=== PATIENT | male | born 1945 | race Hispanic/Latino ===

== ENCOUNTER → 2019-10-31 | Outpatient (CLI) | payer MEDICARE ==
[~2019-10-31] MED LIST: ALBUMIN (HUMAN) 25% 200 ML IV ONE
[2019-10-31 08:57] LABS: BASOPHILS % (AUTO) 0.6 % (0.0-5.0); EOSINOPHILS % (AUTO) 2.2 % (0.0-8.0); HEMATOCRIT 27.5 % (42-54); LYMPHOCYTES % (AUTO) 16.9 % (21.0-51.0); MEAN CORPUSCULAR HEMOGLOBIN 29.9 pg (27.0-33.0); MEAN CORPUSCULAR HGB CONC 31.3 g/dL (32.0-36.0); MEAN CORPUSCULAR VOLUME 95.5 fL (79-99); MONOCYTES % (AUTO) 5.6 % (3.0-13.0); NEUTROPHILS % (AUTO) 74.4 % (40.0-77.0); PLATELET COUNT (AUTO) 196 K/uL (130-400); RED BLOOD CELL COUNT(AUTO) 2.88 MIL/uL (4.50-6.20); RED CELL DISTRIBUTION WIDTH 19.8 % (11.0-15.5)
[2019-10-31 09:31] LABS: INR 1.18 (0.85-1.15); PROTHROMBIN TIME 12.3 SEC (9.6-11.6)
--- NOTE | 2019-10-31 10:45 | NUR ---
U/S GD PARACENTESIS PROCEDURE PERFORMED BY DR Garo CLARK. PUNCTURE SITE RLQ AND PATIENT TOLERATED PROCEDURE WELL. TOTAL REMOVED 5.5 LITERS OF CLOUDY YELLOW FLUID. ALBUMIN 25% 50 GRAMS IV GIVEN DURING PROCEDURE. SPECIMEN SENT TO LAB. END OF PROCEDURE AT 1015. CATHETER REMOVED AND DRESSING APPLIED. NO BLEEDING NOTED. DISCHARGE INSTRUCTIONS GIVEN TO PATIENT AND VERBALIZED UNDERSTANDING. DISCHARG[facility]. AAO X3 WITH NO C/O PAIN.
[2019-10-31 11:17] LABS: ALBUMIN 1.8 g/dL (3.5-5.0); BILIRUBIN,TOTAL 0.5 mg/dL (0.2-1.0); CREATININE 1.7 mg/dL (0.5-1.5); TOTAL PROTEIN, SERUM 6.7 g/dL (6.0-8.3)
[2019-10-31 16:38] LABS: APPEARANCE BODY FLUID SLIGHTLY CLOUDY (CLEAR); COLOR,BODY FLUID YELLOW (LT YELLOW); SPECIMENTYPE,BODY FLUID ASCITES
[2019-10-31 16:39] LABS: BODY FLUID WBC 206 /cu. mm.; TOTAL VOLUME,BODY FLUID 5500 mL
[2019-10-31 16:40] LABS: BODY FLUID RBC 130 /cu. mm.
[2019-10-31 16:42] LABS: BF LYMPHOCYTE 39 %; BF MESOTHELIAL 2 %; BF MONOCYTE 1 %; BF OTHER CELLS 3
== END ==
LOC: RAH 08:10
PROVIDERS: ATTEND Internal Medicine Gastroenterology
DX: R18.8 Other ascites (principal); Z79.899 Other long term (current) drug therapy
CPT/HCPCS: 36415; 49083; 80053; 82042; 84157; 85025; 85610; 87071; 87205; 88108; 89051; A4215; P9046

== ENCOUNTER → 2019-11-08 | Outpatient (CLI) | payer MEDICARE ==
[~2019-11-08] MED LIST changes: -ALBUMIN (HUMAN) 25% 200 ML IV ONE; +ALBUMIN (HUMAN) 25% 200 ML IV PRN
--- NOTE | 2019-11-08 09:45 | NUR ---
U/S GD PARACENTESIS PROCEDURE PERFORMED BY DR BRADLEY. PUNCTURE SITE RLQ AND PATIENT TOLERATED PROCEDURE WELL. TOTAL REMOVED 6.2 LITERS OF CLOUDY YELLOW FLUID. ALBUMIN 25% 50 GRAMS IV GIVEN DURING PROCEDURE. SPECIMEN SENT TO LAB. END OF PROCEDURE AT 0915. CATHETER REMOVED AND DRESSING APPLIED. NO BLEEDING NOTED. DISCHARGE INSTRUCTIONS GIVEN TO PATIENT AND VERBALIZED UNDERSTANDING. DISCHARGED VIA VAN TRANSPORTATION TO [facility]. AAO X3 WITH NO C/O PAIN.
[2019-11-08 12:40] LABS: APPEARANCE BODY FLUID CLEAR (CLEAR); BODY FLUID WBC 239 /cu. mm.; COLOR,BODY FLUID YELLOW (LT YELLOW); SPECIMENTYPE,BODY FLUID ASCITES; TOTAL VOLUME,BODY FLUID 6200 mL
[2019-11-08 12:41] LABS: BODY FLUID RBC 70 /cu. mm.
[2019-11-08 12:51] LABS: BF LYMPHOCYTE 39 %; BF MESOTHELIAL 14 %; BF MONOCYTE 12 %
== END ==
LOC: RAH 08:22
PROVIDERS: ATTEND Internal Medicine
DX: R18.8 Other ascites (principal); Z79.899 Other long term (current) drug therapy
CPT/HCPCS: 49083; 87071; 87205; 89051; 96365; A4215

== ENCOUNTER → 2019-11-18 | Outpatient (CLI) | payer MEDICARE ==
[~2019-11-18] MED LIST changes: -ALBUMIN (HUMAN) 25% 200 ML IV PRN; +ALBUMIN (HUMAN) 25% 200 ML IV SCH
--- NOTE | 2019-11-18 09:30 | NUR ---
U/S GD PARACENTESIS PROCEDURE PERFORMED BY DR Jeramie SAHU. PUNCTURE SITE RLQ AND PATIENT TOLERATED PROCEDURE WELL. TOTAL REMOVED 6.7 LITERS OF CLOUDY YELLOW FLUID. ALBUMIN 25% 50 GRAMS IV GIVEN DURING PROCEDURE. SPECIMEN SENT TO LAB. END OF PROCEDURE AT 0900. CATHETER REMOVED AND DRESSING APPLIED. NO BLEEDING NOTED. DISCHARGE INSTRUCTIONS GIVEN TO PATIENT AND VERBALIZED UNDERSTANDING. DISCHARGED VIA W/C AT 0930. AAO X3 WITH NO C/O PAIN.
[2019-11-18 14:48] LABS: APPEARANCE BODY FLUID SLIGHTLY CLOUDY (CLEAR); SPECIMENTYPE,BODY FLUID ASCITES
[2019-11-18 14:49] LABS: COLOR,BODY FLUID YELLOW (LT YELLOW); TOTAL VOLUME,BODY FLUID 6700 mL
[2019-11-18 15:03] LABS: BODY FLUID WBC 260 /cu. mm.
[2019-11-18 15:04] LABS: BODY FLUID RBC 263 /cu. mm.
[2019-11-18 15:13] LABS: BF LYMPHOCYTE 51 %; BF MESOTHELIAL 5 %
== END ==
LOC: RAH 07:56
PROVIDERS: ATTEND Internal Medicine
DX: R18.8 Other ascites (principal); K74.60 Unspecified cirrhosis of liver; I13.0 Hypertensive heart and chronic kidney disease with heart failure and stage 1 through stage 4 chronic kidney disease, or unspecified chronic kidney disease; I50.42 Chronic combined systolic (congestive) and diastolic (congestive) heart failure; E11.22 Type 2 diabetes mellitus with diabetic chronic kidney disease; N18.3 Chronic kidney disease, stage 3 (moderate); E11.52 Type 2 diabetes mellitus with diabetic peripheral angiopathy with gangrene; E11.43 Type 2 diabetes mellitus with diabetic autonomic (poly)neuropathy; E11.621 Type 2 diabetes mellitus with foot ulcer; E78.2 Mixed hyperlipidemia; F17.200 Nicotine dependence, unspecified, uncomplicated; Z88.8 Allergy status to other drugs, medicaments and biological substances; Z79.4 Long term (current) use of insulin; Z79.899 Other long term (current) drug therapy; Z89.432 Acquired absence of left foot
CPT/HCPCS: 49083; 76700; 87071; 87205; 89051; 96365; A4215; P9046

== ENCOUNTER 2019-11-25 10:52 | Emergency (ER) | payer MEDICARE ==
--- NOTE | 2019-11-25 12:10 | NUR ---
U/S GD PARACENTESIS PROCEDURE PERFORMED BY DR. HELLER. PUNCTURE SITE RIGHT LOWER QUADRANT OF ABDOMEN AND PATIENT TOLERATED PROCEDURE WELL. TOTAL REMOVED 4.2 LITERS OF CLOUDY STRAW COLORED ASCITES FLUID. END OF PROCEDURE AT 1230. CATHETER REMOVED AND DRESSING APPLIED. NO BLEEDING NOTED. ALBUMIN 25% 25 GRAMS GIVEN DURING PROCEDURE PER [facility] [place] ALBUMIN PROTOCOL. REPORT CALLED TO [facility] N[facility]SE. PT TRANSPORTED TO THE ED VIA STRETCHER STABLE, AAO X3 WITH NO C/O PAIN. SPOUSE ESCORTING PATIENT WITH PATIENT'S W/C. SPECIMEN SENT TO LAB.
[2019-11-25 12:13] LABS: BASOPHILS % (AUTO) 0.4 % (0.0-5.0); EOSINOPHILS % (AUTO) 1.3 % (0.0-8.0); HEMATOCRIT 33.7 % (42-54); LYMPHOCYTES % (AUTO) 17.2 % (21.0-51.0); MEAN CORPUSCULAR HEMOGLOBIN 29.6 pg (27.0-33.0); MEAN CORPUSCULAR HGB CONC 31.8 g/dL (32.0-36.0); MEAN CORPUSCULAR VOLUME 93.1 fL (79-99); MONOCYTES % (AUTO) 5.2 % (3.0-13.0); NEUTROPHILS % (AUTO) 74.7 % (40.0-77.0); PLATELET COUNT (AUTO) 220 K/uL (130-400); RED BLOOD CELL COUNT(AUTO) 3.62 MIL/uL (4.50-6.20); RED CELL DISTRIBUTION WIDTH 16.9 % (11.0-15.5); WHITE BLOOD COUNT (AUTO) 9.4 K/uL (4.8-10.8)
[2019-11-25] MEDS ORDERED: ALBUMIN (HUMAN) 25% 200 ML IV SCH (12:15)
[2019-11-25 12:23] LABS: INR 1.17 (0.85-1.15); PARTIAL THROMBOPLASTIN TIME 34.6 SEC (26.3-35.5); PROTHROMBIN TIME 12.2 SEC (9.6-11.6)
[2019-11-25 12:25] LABS: CREATININE 2.7 mg/dL (0.5-1.5); POTASSIUM 5.4 mmol/L (3.5-5.1)
[2019-11-25 12:29] LABS: ALBUMIN 2.2 g/dL (3.5-5.0); BILIRUBIN,TOTAL 0.7 mg/dL (0.2-1.0); TOTAL PROTEIN, SERUM 7.3 g/dL (6.0-8.3)
[2019-11-25 15:50] LABS: APPEARANCE BODY FLUID SLIGHTLY CLOUDY (CLEAR); COLOR,BODY FLUID YELLOW (LT YELLOW); SPECIMENTYPE,BODY FLUID ASCITES; TOTAL VOLUME,BODY FLUID 4200 mL
[2019-11-25 15:51] LABS: BODY FLUID RBC 211 /cu. mm.; BODY FLUID WBC 347 /cu. mm.
[2019-11-25 15:55] LABS: BF LYMPHOCYTE 62 %; BF MESOTHELIAL 8 %; BF MONOCYTE 10 %
== END 2019-11-25 15:30 | disposition home or self-care (01) ==
LOC: EDH 10:52
DX: R18.8 Other ascites (principal); E11.9 Type 2 diabetes mellitus without complications; I10 Essential (primary) hypertension
CPT/HCPCS: 36415; 49083; 80053; 82948 ×2; 85025; 85610; 85730; 87071; 87205; 89051; 96365; 99285; A4215

== ENCOUNTER → 2019-12-02 | Outpatient (CLI) | payer MEDICARE ==
--- NOTE | 2019-12-02 08:35 | NUR ---
U/S GD PARACENTESIS PROCEDURE PERFORMED BY DR. HELLER. PUNCTURE SITE RIGHT LOWER QUADRANT OF ABDOMEN AND PATIENT TOLERATED PROCEDURE WELL. TOTAL REMOVED 3.8 LITERS OF CLOUDY YELLOW FLUID. END OF PROCEDURE AT 0900. CATHETER REMOVED AND DRESSING APPLIED. NO BLEEDING NOTED. ALBUMIN 25% 50 GRAMS GIVEN DURING PROCEDURE PER [facility] [place] ALBUMIN PROTOCOL. PIV DC'D, BANDAID APPLIED, DRESSING DRY AND INTACT. DISCHARGE INSTRUCTIONS GIVEN TO PATIENT. PATIENT VERBALIZED UNDERSTANDING. PT DISCHARGED VIA W/C, STABLE, AAO X3 WITH NO C/O PAIN. SPECIMEN SENT TO LAB.
[2019-12-02 15:28] LABS: APPEARANCE BODY FLUID SLIGHTLY CLOUDY (CLEAR); COLOR,BODY FLUID YELLOW (LT YELLOW); SPECIMENTYPE,BODY FLUID ASCITES; TOTAL VOLUME,BODY FLUID 3800 mL
[2019-12-02 15:29] LABS: BODY FLUID WBC 358 /cu. mm.
[2019-12-02 15:30] LABS: BODY FLUID RBC 175 /cu. mm.
[2019-12-02 16:31] LABS: BF LYMPHOCYTE 73 %; BF MESOTHELIAL 2 %; BF OTHER CELLS 1
== END | disposition home or self-care (01) ==
LOC: RAH 07:33
PROVIDERS: ATTEND Internal Medicine
DX: R18.8 Other ascites (principal); K74.60 Unspecified cirrhosis of liver; E11.22 Type 2 diabetes mellitus with diabetic chronic kidney disease; N18.3 Chronic kidney disease, stage 3 (moderate); E78.2 Mixed hyperlipidemia; I50.42 Chronic combined systolic (congestive) and diastolic (congestive) heart failure; I13.0 Hypertensive heart and chronic kidney disease with heart failure and stage 1 through stage 4 chronic kidney disease, or unspecified chronic kidney disease; J44.9 Chronic obstructive pulmonary disease, unspecified; F11.20 Opioid dependence, uncomplicated; E11.618 Type 2 diabetes mellitus with other diabetic arthropathy; E11.42 Type 2 diabetes mellitus with diabetic polyneuropathy; E11.51 Type 2 diabetes mellitus with diabetic peripheral angiopathy without gangrene; Z79.4 Long term (current) use of insulin; Z79.899 Other long term (current) drug therapy; Z88.8 Allergy status to other drugs, medicaments and biological substances
CPT/HCPCS: 49083; 87071; 87205; 89051; 96365; A4215; P9046

== ENCOUNTER → 2019-12-09 | Outpatient (CLI) | payer MEDICARE ==
[~2019-12-09] MED LIST changes: +ALBUMIN (HUMAN) 25% 100 ML IV SCH; -ALBUMIN (HUMAN) 25% 200 ML IV SCH
--- NOTE | 2019-12-09 09:55 | NUR ---
U/S GD PARACENTESIS PROCEDURE PERFORMED BY DR. HELLER. PUNCTURE SITE RIGHT LOWER QUADRANT OF ABDOMEN AND PATIENT TOLERATED PROCEDURE WELL. TOTAL REMOVED 4.7 LITERS OF CLOUDY YELLOW FLUID. END OF PROCEDURE AT 1035. CATHETER REMOVED AND DRESSING APPLIED. NO BLEEDING NOTED. ALBUMIN 25% 25 GRAMS GIVEN DURING PROCEDURE [place] [facility] [place]. PIV DC'D, BANDAID APPLIED, DRESSING DRY AND INTACT. DISCHARGE INSTRUCTIONS GIVEN TO PATIENT. PATIENT VERBALIZED UNDERSTANDING. PT DISCHARGED VIA W/C, STABLE, AAO X3 WITH NO C/O PAIN. SPECIMEN SENT TO LAB.
[2019-12-09 14:13] LABS: SPECIMENTYPE,BODY FLUID ASCITES
[2019-12-09 14:14] LABS: APPEARANCE BODY FLUID SLIGHTLY CLOUDY (CLEAR); BODY FLUID RBC 625 /cu. mm.; BODY FLUID WBC 605 /cu. mm.; COLOR,BODY FLUID LT YELLOW (LT YELLOW); TOTAL VOLUME,BODY FLUID 4700 mL
[2019-12-09 14:16] LABS: BF LYMPHOCYTE 25 %; BF MESOTHELIAL 1 %; BF MONOCYTE 7 %
== END ==
LOC: RAH 09:07
PROVIDERS: ATTEND Internal Medicine
DX: R18.8 Other ascites (principal); K74.60 Unspecified cirrhosis of liver; E78.2 Mixed hyperlipidemia; I13.0 Hypertensive heart and chronic kidney disease with heart failure and stage 1 through stage 4 chronic kidney disease, or unspecified chronic kidney disease; N18.3 Chronic kidney disease, stage 3 (moderate); E11.22 Type 2 diabetes mellitus with diabetic chronic kidney disease; I50.42 Chronic combined systolic (congestive) and diastolic (congestive) heart failure; J44.9 Chronic obstructive pulmonary disease, unspecified; E11.618 Type 2 diabetes mellitus with other diabetic arthropathy; E11.42 Type 2 diabetes mellitus with diabetic polyneuropathy; E11.51 Type 2 diabetes mellitus with diabetic peripheral angiopathy without gangrene; Z79.4 Long term (current) use of insulin; Z79.899 Other long term (current) drug therapy; Z88.8 Allergy status to other drugs, medicaments and biological substances
CPT/HCPCS: 49083; 87071; 87205; 89051; 96365; A4215; P9046

== ENCOUNTER → 2019-12-16 | Outpatient (CLI) | payer MEDICARE ==
[~2019-12-16] MED LIST changes: -ALBUMIN (HUMAN) 25% 100 ML IV SCH; +ALBUMIN (HUMAN) 25% 200 ML IV PRN
--- NOTE | 2019-12-16 11:00 | NUR ---
U/S GD PARACENTESIS PROCEDURE PERFORMED BY DR. whitman. PUNCTURE SITE RUQ. TOTAL REMOVED 3.5LITERS OF STAW COLOR FLUID. END OF PROCEDURE AT 1045. PATIENT TOLERATED PROCEDURE WELL. DISCHARGE INSTRUCTIONS GIVEN TO PATIENT AND VERBALIZED UNDERSTANDING. DISCHARGED AT 1100 VIA WHEELCHAIR. PUNCTURE SITE SHOWS NO BLEEDING.PT DENIES ANY PAIN OR DISCOMFORT.
== END ==
LOC: RAH 08:01
PROVIDERS: ATTEND Internal Medicine
DX: R18.8 Other ascites (principal); I13.0 Hypertensive heart and chronic kidney disease with heart failure and stage 1 through stage 4 chronic kidney disease, or unspecified chronic kidney disease; I50.42 Chronic combined systolic (congestive) and diastolic (congestive) heart failure; N18.3 Chronic kidney disease, stage 3 (moderate); D63.8 Anemia in other chronic diseases classified elsewhere; E11.22 Type 2 diabetes mellitus with diabetic chronic kidney disease; M86.672 Other chronic osteomyelitis, left ankle and foot; E78.2 Mixed hyperlipidemia; E11.42 Type 2 diabetes mellitus with diabetic polyneuropathy; E11.51 Type 2 diabetes mellitus with diabetic peripheral angiopathy without gangrene; Z88.6 Allergy status to analgesic agent; Z88.8 Allergy status to other drugs, medicaments and biological substances; Z79.4 Long term (current) use of insulin; Z79.899 Other long term (current) drug therapy; F11.20 Opioid dependence, uncomplicated; E11.618 Type 2 diabetes mellitus with other diabetic arthropathy
CPT/HCPCS: 49083; A4215

== ENCOUNTER → 2019-12-23 | Outpatient (CLI) | payer MEDICARE ==
[~2019-12-23] MED LIST changes: +ALBUMIN (HUMAN) 25% 100 ML IV PRN
--- NOTE | 2019-12-23 08:55 | NUR ---
U/S GD PARACENTESIS PROCEDURE PERFORMED BY DR. HELLER. PUNCTURE SITE RIGHT LOWER QUADRANT OF ABDOMEN AND PATIENT TOLERATED PROCEDURE WELL. TOTAL REMOVED 4.2 LITERS OF CLOUDY YELLOW FLUID. END OF PROCEDURE AT 0925. CATHETER REMOVED AND DRESSING APPLIED. NO BLEEDING NOTED. ALBUMIN 25% 25 GRAMS GIVEN DURING PROCEDURE PER [facility] [place] ALBUMIN PROTOCOL. PIV DC'D, BANDAID APPLIED, DRESSING DRY AND INTACT. DISCHARGE INSTRUCTIONS GIVEN TO PATIENT. PATIENT VERBALIZED UNDERSTANDING. PT DISCHARGED VIA W/C, STABLE, AAO X3 WITH NO C/O PAIN. SPECIMEN SENT TO LAB.
[2019-12-23 15:28] LABS: APPEARANCE BODY FLUID SLIGHTLY CLOUDY (CLEAR); COLOR,BODY FLUID YELLOW (LT YELLOW); SPECIMENTYPE,BODY FLUID ASCITES; TOTAL VOLUME,BODY FLUID 4200 mL
[2019-12-23 15:29] LABS: BODY FLUID RBC 700 /cu. mm.; BODY FLUID WBC 770 /cu. mm.
[2019-12-23 15:52] LABS: BF LYMPHOCYTE 20 %; BF MESOTHELIAL 6 %
== END ==
LOC: RAH 07:12
PROVIDERS: ATTEND Internal Medicine
DX: R18.8 Other ascites (principal); K74.60 Unspecified cirrhosis of liver; I13.0 Hypertensive heart and chronic kidney disease with heart failure and stage 1 through stage 4 chronic kidney disease, or unspecified chronic kidney disease; E11.22 Type 2 diabetes mellitus with diabetic chronic kidney disease; N18.3 Chronic kidney disease, stage 3 (moderate); E11.52 Type 2 diabetes mellitus with diabetic peripheral angiopathy with gangrene; E11.43 Type 2 diabetes mellitus with diabetic autonomic (poly)neuropathy; M86.672 Other chronic osteomyelitis, left ankle and foot; I50.42 Chronic combined systolic (congestive) and diastolic (congestive) heart failure; E11.59 Type 2 diabetes mellitus with other circulatory complications; F11.20 Opioid dependence, uncomplicated; E78.2 Mixed hyperlipidemia; E11.618 Type 2 diabetes mellitus with other diabetic arthropathy; E03.9 Hypothyroidism, unspecified; E11.42 Type 2 diabetes mellitus with diabetic polyneuropathy; E11.51 Type 2 diabetes mellitus with diabetic peripheral angiopathy without gangrene; Z79.4 Long term (current) use of insulin; Z79.899 Other long term (current) drug therapy; Z88.8 Allergy status to other drugs, medicaments and biological substances
CPT/HCPCS: 49083; 87071; 87205; 89051; 96365; A4215

== ENCOUNTER → 2019-12-30 | Outpatient (CLI) | payer MEDICARE ==
[~2019-12-30] MED LIST changes: +ALBUMIN (HUMAN) 25% 100 ML IV ONE; -ALBUMIN (HUMAN) 25% 100 ML IV PRN; -ALBUMIN (HUMAN) 25% 200 ML IV PRN
[2019-12-30 08:34] LABS: INR 1.11 (0.85-1.15); PARTIAL THROMBOPLASTIN TIME 36.1 SEC (26.3-35.5); PROTHROMBIN TIME 11.6 SEC (9.6-11.6)
--- NOTE | 2019-12-30 09:10 | NUR ---
U/S GD PARACENTESIS PROCEDURE PERFORMED BY DR. HELLER. PUNCTURE SITE LEFT LOWER QUADRANT OF ABDOMEN AND PATIENT TOLERATED PROCEDURE WELL. TOTAL REMOVED 4.6 LITERS [place] CLOUDY [place] [address]. CATHETER REMOVED AND DRESSING APPLIED. NO BLEEDING NOTED. ALBUMIN 25% 25 GRAMS GIVEN DURING PROCEDURE PER [facility] [place]. RIGHT FOREARM PIV DC'D, BANDAID APPLIED, DRESSING DRY AND INTACT. DISCHARGE INSTUCTIONS GIVEN TO PATIENT. PATIENT VERBALIZED UNDERSTANDING. PT DISCHARGED VIA W/C, STABLE, AAO X3 WITH NO C/O PAIN. SPECIMEN SENT TO LAB.
[2019-12-30 16:13] LABS: APPEARANCE BODY FLUID SLIGHTLY CLOUDY (CLEAR); BODY FLUID WBC 399 /cu. mm.; COLOR,BODY FLUID YELLOW (LT YELLOW); SPECIMENTYPE,BODY FLUID ASCITES; TOTAL VOLUME,BODY FLUID 1000 mL
[2019-12-30 16:14] LABS: BODY FLUID RBC 800 /cu. mm.
[2019-12-30 16:16] LABS: BF LYMPHOCYTE 29 %; BF MESOTHELIAL 2 %; BF MONOCYTE 7 %
== END ==
LOC: RAH 07:41
PROVIDERS: ATTEND Internal Medicine
DX: K74.60 Unspecified cirrhosis of liver (principal); E11.43 Type 2 diabetes mellitus with diabetic autonomic (poly)neuropathy; E11.22 Type 2 diabetes mellitus with diabetic chronic kidney disease; E78.2 Mixed hyperlipidemia; E11.618 Type 2 diabetes mellitus with other diabetic arthropathy; E03.9 Hypothyroidism, unspecified; E11.51 Type 2 diabetes mellitus with diabetic peripheral angiopathy without gangrene; N18.3 Chronic kidney disease, stage 3 (moderate); M86.172 Other acute osteomyelitis, left ankle and foot; Z88.6 Allergy status to analgesic agent; Z88.8 Allergy status to other drugs, medicaments and biological substances; Z79.899 Other long term (current) drug therapy
CPT/HCPCS: 36415; 49083; 85610; 85730; 87071; 87205; 89051; A4215; 96365; P9046

== ENCOUNTER → 2020-01-06 | Outpatient (CLI) | payer MEDICARE ==
[~2020-01-06] MED LIST changes: -ALBUMIN (HUMAN) 25% 100 ML IV ONE; +ALBUMIN (HUMAN) 25% 200 ML IV ONE
--- NOTE | 2020-01-06 08:35 | NUR ---
U/S GD PARACENTESIS PROCEDURE PERFORMED BY DR. HELLER. PUNCTURE SITE LEFT LOWER QUADRANT OF ABDOMEN AND PATIENT TOLERATED PROCEDURE WELL. TOTAL REMOVED 4.1 LITERS OF CLOUDY YELLOW FLUID. END OF PROCEDURE AT 0910. CATHETER REMOVED AND DRESSING APPLIED. NO BLEEDING NOTED. ALBUMIN 25% 25 GRAMS GIVEN DURING PROCEDURE PER [facility] [place] ALBUMIN PROTOCOL. RAC PIV DC'D, BANDAID APPLIED, DRESSING DRY AND INTACT. DISCHARGE INSTUCTIONS GIVEN TO PATIENT. PATIENT VERBALIZED UNDERSTANDING. PT DISCHARGED VIA W/C, STABLE, AAO X3 WITH NO C/O PAIN. SPECIMEN SENT TO LAB.
[2020-01-06 13:43] LABS: APPEARANCE BODY FLUID CLOUDY (CLEAR); COLOR,BODY FLUID YELLOW (LT YELLOW); SPECIMENTYPE,BODY FLUID ASCITES; TOTAL VOLUME,BODY FLUID 4100 mL
[2020-01-06 13:46] LABS: BODY FLUID WBC 503 /cu. mm.
[2020-01-06 13:47] LABS: BODY FLUID RBC 200 /cu. mm.
[2020-01-06 13:54] LABS: BF LYMPHOCYTE 37 %; BF MONOCYTE 10 %
== END ==
LOC: RAH 07:13
PROVIDERS: ATTEND Internal Medicine
DX: R18.8 Other ascites (principal); K74.60 Unspecified cirrhosis of liver; E11.69 Type 2 diabetes mellitus with other specified complication; E11.42 Type 2 diabetes mellitus with diabetic polyneuropathy; E11.618 Type 2 diabetes mellitus with other diabetic arthropathy; I13.0 Hypertensive heart and chronic kidney disease with heart failure and stage 1 through stage 4 chronic kidney disease, or unspecified chronic kidney disease; E11.22 Type 2 diabetes mellitus with diabetic chronic kidney disease; N18.3 Chronic kidney disease, stage 3 (moderate); I50.42 Chronic combined systolic (congestive) and diastolic (congestive) heart failure; F11.20 Opioid dependence, uncomplicated; E11.52 Type 2 diabetes mellitus with diabetic peripheral angiopathy with gangrene; E11.59 Type 2 diabetes mellitus with other circulatory complications; L97.424 Non-pressure chronic ulcer of left heel and midfoot with necrosis of bone; E11.3293 Type 2 diabetes mellitus with mild nonproliferative diabetic retinopathy without macular edema, bilateral; I25.10 Atherosclerotic heart disease of native coronary artery without angina pectoris; E78.2 Mixed hyperlipidemia; Z88.8 Allergy status to other drugs, medicaments and biological substances; Z79.4 Long term (current) use of insulin; Z79.899 Other long term (current) drug therapy; Z98.890 Other specified postprocedural states
CPT/HCPCS: 49083; 87071; 87205; 89051; A4215; P9046; 96365

== ENCOUNTER → 2020-01-13 | Outpatient (CLI) | payer MEDICARE ==
[~2020-01-13] MED LIST changes: -ALBUMIN (HUMAN) 25% 200 ML IV ONE; +ALBUMIN (HUMAN) 25% 200 ML IV SCH
--- NOTE | 2020-01-13 09:59 | NUR ---
U/S GD PARACENTESIS PROCEDURE PERFORMED BY DR. Garo CLARK. PUNCTURE SITE LEFT LOWER QUADRANT OF ABDOMEN AND PATIENT TOLERATED PROCEDURE WELL. TOTAL REMOVED 3.1 LITERS OF CLOUDY YELLOW FLUID. END OF PROCEDURE AT 0840. CATHETER REMOVED AND DRESSING APPLIED. NO BLEEDING NOTED.DID NOT MEET ALBUMIN INF[place] [facility] [place]. DRESSING DRY AND INTACT. DISCHARGE INSTUCTIONS GIVEN TO PATIENT. PATIENT VERBALIZED UNDERSTANDING. PT DISCHARGED VIA W/C, STABLE, AAO X3 WITH NO C/O PAIN.
== END ==
LOC: RAH 07:03
PROVIDERS: ATTEND Internal Medicine
DX: R18.8 Other ascites (principal); K74.60 Unspecified cirrhosis of liver
CPT/HCPCS: 49083; A4215; P9046

== ENCOUNTER → 2020-01-20 | Outpatient (CLI) | payer MEDICARE ==
[~2020-01-20] MED LIST changes: +ALBUMIN (HUMAN) 25% 100 ML IV SCH; -ALBUMIN (HUMAN) 25% 200 ML IV SCH
--- NOTE | 2020-01-20 09:15 | NUR ---
U/S GD PARACENTESIS PROCEDURE PERFORMED BY DR. NIETO. PUNCTURE SITE LEFT LOWER QUADRANT OF ABDOMEN AND PATIENT TOLERATED PROCEDURE WELL. TOTAL REMOVED 2.5 LITERS OF CLOUDY YELLOW FLUID. END OF PROCEDURE AT 0925. CATHETER REMOVED AND DRESSING APPLIED. NO BLEEDING NOTED. DISCHARGE INSTUCTIONS GIVEN TO PATIENT. PATIENT VERBALIZED UNDERSTANDING. PT DISCHARGED VIA W/C, STABLE, AAO X3 WITH NO C/O PAIN @ 1005.
== END ==
LOC: RAH 06:57
PROVIDERS: ATTEND Internal Medicine
DX: R18.8 Other ascites (principal); K74.60 Unspecified cirrhosis of liver
CPT/HCPCS: 49083; A4215

== ENCOUNTER → 2020-02-06 | Outpatient (CLI) | payer MEDICARE ==
[2020-02-06 08:33] LABS: INR 1.08 (0.85-1.15); PARTIAL THROMBOPLASTIN TIME 36.6 SEC (26.3-35.5); PROTHROMBIN TIME 11.6 SEC (9.6-11.6)
--- NOTE | 2020-02-06 09:45 | NUR ---
US GUIDED PARACENTESIS PROCEDURE PERFORMED BY DR SAHU , PUNCTURE SITE TO LLQ AND PATIENT TOLERATED WELL.TOTAL REMOVED 4.6 LITERS. END OF PROCEDURE 0915 AM, CATHETER REMOVED AND DRESSING APPLIED NO BLEEDING NOTED. DISCHARGE INSTRUCTIONS GIVEN TO PT AND VERBALIZED UNDERSTANDING. DISCHARGE VIA WC TO SPOUSE. AAO X 3 NO C/O PAIN. PIV REMOVED FROM RIGHT ARM DRESSING APPLIED CATHETER INTACT. SPECIMEN SEND TO LAB
[2020-02-06 11:04] LABS: APPEARANCE BODY FLUID CLEAR (CLEAR); BODY FLUID RBC 132 /cu. mm.; BODY FLUID WBC 338 /cu. mm.; COLOR,BODY FLUID YELLOW (LT YELLOW); SPECIMENTYPE,BODY FLUID ASCITES
[2020-02-06 11:49] LABS: TOTAL VOLUME,BODY FLUID 4600 mL
[2020-02-06 11:53] LABS: BF LYMPHOCYTE 31 %; BF MESOTHELIAL 35 %; BF MONOCYTE 10 %
== END | disposition home or self-care (01) ==
LOC: RAH 07:54
PROVIDERS: ATTEND Internal Medicine
DX: R18.8 Other ascites (principal); K74.60 Unspecified cirrhosis of liver
CPT/HCPCS: 36415; 49083; 85610; 85730; 87071; 87205; 89051; 96365; A4215; P9046

== ENCOUNTER → 2020-02-20 | Outpatient (CLI) | payer MEDICARE ==
[~2020-02-20] MED LIST changes: -ALBUMIN (HUMAN) 25% 100 ML IV SCH; +ALBUMIN (HUMAN) 25% 200 ML IV SCH
--- NOTE | 2020-02-20 10:30 | NUR ---
US GUIDED PARACENTESIS PROCEDURE PERFORMED BY DR Daniela POON. PUNCTURE SITE TO RLQ AND PATIENT TOLERATED WELL.TOTAL REMOVED 6.4 LITERS. END OF PROCEDURE 0945 AM, CATHETER REMOVED AND DRESSING APPLIED NO BLEEDING NOTED. DISCHARGE INSTRUCTIONS GIVEN TO PT AND VERBALIZED UNDERSTANDING. DISCHARGE VIA W/C. AAO X 3 NO C/O PAIN. PIV REMOVED FROM RIGHT ARM DRESSING APPLIED CATHETER INTACT. SPECIMEN SEND TO LAB. ALBUMIN 25% 50 GRAMS IV GIVEN PER [facility] [place].
[2020-02-20 15:55] LABS: APPEARANCE BODY FLUID CLEAR (CLEAR); COLOR,BODY FLUID YELLOW (LT YELLOW); SPECIMENTYPE,BODY FLUID ASCITES; TOTAL VOLUME,BODY FLUID 6400 mL
[2020-02-20 15:56] LABS: BODY FLUID RBC 202 /cu. mm.; BODY FLUID WBC 168 /cu. mm.
[2020-02-20 16:17] LABS: BF LYMPHOCYTE 23 %; BF MONOCYTE 2 %; BF OTHER CELLS 8
== END | disposition home or self-care (01) ==
LOC: RAH 07:21
PROVIDERS: ATTEND Internal Medicine
DX: R18.8 Other ascites (principal); K74.60 Unspecified cirrhosis of liver; E11.43 Type 2 diabetes mellitus with diabetic autonomic (poly)neuropathy; I13.0 Hypertensive heart and chronic kidney disease with heart failure and stage 1 through stage 4 chronic kidney disease, or unspecified chronic kidney disease; E11.22 Type 2 diabetes mellitus with diabetic chronic kidney disease; N18.3 Chronic kidney disease, stage 3 (moderate); I50.42 Chronic combined systolic (congestive) and diastolic (congestive) heart failure; F17.200 Nicotine dependence, unspecified, uncomplicated; F32.9 Major depressive disorder, single episode, unspecified; E78.2 Mixed hyperlipidemia; Z79.4 Long term (current) use of insulin; Z79.899 Other long term (current) drug therapy
CPT/HCPCS: 49083; 87071; 87205; 89051; A4215; 96365

== ENCOUNTER → 2020-03-05 | Outpatient (CLI) | payer MEDICARE ==
--- NOTE | 2020-03-05 12:45 | NUR ---
US GUIDED PARACENTESIS PROCEDURE PERFORMED BY DR Patrick NIETO. PUNCTURE SITE TO RLQ AND PATIENT TOLERATED WELL.TOTAL REMOVED 4 LITERS. END OF PROCEDURE 1215 AM, CATHETER REMOVED AND DRESSING APPLIED NO BLEEDING NOTED. DISCHARGE INSTRUCTIONS GIVEN TO PT AND VERBALIZED UNDERSTANDING. DISCHARGE VIA W/C. AAO X 3 NO C/O PAIN. PIV REMOVED FROM RIGHT ARM DRESSING APPLIED CATHETER INTACT. SPECIMEN SEND TO LAB. ALBUMIN 25% 25 GRAMS IV GIVEN PER [facility] [place].
[2020-03-05 15:53] LABS: APPEARANCE BODY FLUID SLIGHTLY CLOUDY (CLEAR); SPECIMENTYPE,BODY FLUID ASCITES
[2020-03-05 15:54] LABS: BODY FLUID RBC 229 /cu. mm.; BODY FLUID WBC 338 /cu. mm.; COLOR,BODY FLUID LT YELLOW (LT YELLOW); TOTAL VOLUME,BODY FLUID 4000 mL
[2020-03-05 16:36] LABS: BF EOSINOPHIL 1 %; BF LYMPHOCYTE 71 %; BF MONOCYTE 2 %; BF OTHER CELLS 3
== END ==
LOC: RAH 10:32
PROVIDERS: ATTEND Internal Medicine
DX: R18.8 Other ascites (principal); I13.0 Hypertensive heart and chronic kidney disease with heart failure and stage 1 through stage 4 chronic kidney disease, or unspecified chronic kidney disease; E11.22 Type 2 diabetes mellitus with diabetic chronic kidney disease; N18.3 Chronic kidney disease, stage 3 (moderate); Z88.6 Allergy status to analgesic agent; Z88.8 Allergy status to other drugs, medicaments and biological substances; K74.60 Unspecified cirrhosis of liver; E11.59 Type 2 diabetes mellitus with other circulatory complications; E11.621 Type 2 diabetes mellitus with foot ulcer; E78.2 Mixed hyperlipidemia; E11.618 Type 2 diabetes mellitus with other diabetic arthropathy; E11.42 Type 2 diabetes mellitus with diabetic polyneuropathy; E11.51 Type 2 diabetes mellitus with diabetic peripheral angiopathy without gangrene; M86.272 Subacute osteomyelitis, left ankle and foot
CPT/HCPCS: 49083; 87071; 87205; 89051; A4215; P9046; 96365

== ENCOUNTER → 2020-03-19 | Outpatient (CLI) | payer MEDICARE ==
[~2020-03-19] VITALS: Ht 185 cm; Wt 98.3 kg
--- NOTE | 2020-03-19 08:30 | NUR ---
U/S GD PARACENTESIS PROCEDURE PERFORMED BY DR. TORRES. PUNCTURE SITE LEFT LOWER QUADRANT OF ABDOMEN AND PATIENT TOLERATED PROCEDURE WELL. TOTAL REMOVED 4.3 LITERS OF CLOUDY YELLOW FLUID. END OF PROCEDURE AT 0850. CATHETER REMOVED AND DRESSING APPLIED. NO BLEEDING NOTED. ALBUMIN 25% 25 GRAMS GIVEN DURING PROCEDURE PER [facility] [place] [facility]BUMIN PROTOCOL. LEFT FOREARM PIV DC'D, BANDAID APPLIED, DRESSING DRY AND INTACT. DISCHARGE INSTRUCTIONS GIVEN TO PATIENT. PATIENT VERBALIZED UNDERSTANDING. PT DISCHARGED VIA W/C, STABLE, AAO X3 WITH NO C/O PAIN.
[2020-03-19 10:13] LABS: INR 1.03 (0.85-1.15); PARTIAL THROMBOPLASTIN TIME 35.5 SEC (26.3-35.5); PROTHROMBIN TIME 11.1 SEC (9.6-11.6)
== END ==
LOC: RAH 07:35
PROVIDERS: ATTEND Internal Medicine
DX: R18.8 Other ascites (principal); E11.22 Type 2 diabetes mellitus with diabetic chronic kidney disease; I13.0 Hypertensive heart and chronic kidney disease with heart failure and stage 1 through stage 4 chronic kidney disease, or unspecified chronic kidney disease; N18.3 Chronic kidney disease, stage 3 (moderate); E11.52 Type 2 diabetes mellitus with diabetic peripheral angiopathy with gangrene; I50.42 Chronic combined systolic (congestive) and diastolic (congestive) heart failure; E03.9 Hypothyroidism, unspecified; E11.59 Type 2 diabetes mellitus with other circulatory complications; F11.20 Opioid dependence, uncomplicated; E11.43 Type 2 diabetes mellitus with diabetic autonomic (poly)neuropathy; K74.60 Unspecified cirrhosis of liver; E11.65 Type 2 diabetes mellitus with hyperglycemia; E11.618 Type 2 diabetes mellitus with other diabetic arthropathy; E11.69 Type 2 diabetes mellitus with other specified complication; E78.2 Mixed hyperlipidemia; E11.39 Type 2 diabetes mellitus with other diabetic ophthalmic complication; H42 Glaucoma in diseases classified elsewhere; D63.8 Anemia in other chronic diseases classified elsewhere; Z89.421 Acquired absence of other right toe(s); Z79.4 Long term (current) use of insulin; Z79.899 Other long term (current) drug therapy; Z98.890 Other specified postprocedural states; Z79.84 Long term (current) use of oral hypoglycemic drugs; Z87.891 Personal history of nicotine dependence; Z79.890 Hormone replacement therapy
CPT/HCPCS: 36415; 49083; 85610; 85730; A4215; 96365

== ENCOUNTER → 2020-04-06 | Outpatient (CLI) | payer MEDICARE ==
--- NOTE | 2020-04-06 10:05 | NUR ---
U/S GD PARACENTESIS PROCEDURE PERFORMED BY DR. HELLER. PUNCTURE SITE RIGHT LOWER QUADRANT OF ABDOMEN AND PATIENT TOLERATED PROCEDURE WELL. TOTAL REMOVED 4.3 LITERS OF CLOUDY YELLOW FLUID. END OF PROCEDURE AT 1030. CATHETER REMOVED AND DRESSING APPLIED. NO BLEEDING NOTED. ALBUMIN 25% 25 GRAMS GIVEN DURING PROCEDURE PER [facility] [place] [facility]BUMIN PROTOCOL. RIGHT FOREARM PIV DC'D, BANDAID APPLIED, DRESSING DRY AND INTACT. DISCHARGE INSTRUCTIONS GIVEN TO PATIENT. PATIENT VERBALIZED UNDERSTANDING. PT DISCHARGED VIA W/C, STABLE, AAO X3 WITH NO C/O PAIN. SPECIMEN SENT TO LAB.
[2020-04-06 13:07] LABS: APPEARANCE BODY FLUID CLEAR (CLEAR); BODY FLUID RBC 763 /cu. mm.; BODY FLUID WBC 394 /cu. mm.; COLOR,BODY FLUID YELLOW (LT YELLOW); SPECIMENTYPE,BODY FLUID ASCITES; TOTAL VOLUME,BODY FLUID 4300 mL
[2020-04-06 13:29] LABS: BF BASOPHIL 1 %; BF LYMPHOCYTE 36 %; BF MESOTHELIAL 57 %; BF MONOCYTE 3 %
== END | disposition home or self-care (01) ==
LOC: RAH 08:33
PROVIDERS: ATTEND Internal Medicine
DX: R18.8 Other ascites (principal); K74.60 Unspecified cirrhosis of liver; E11.22 Type 2 diabetes mellitus with diabetic chronic kidney disease; I13.0 Hypertensive heart and chronic kidney disease with heart failure and stage 1 through stage 4 chronic kidney disease, or unspecified chronic kidney disease; N18.3 Chronic kidney disease, stage 3 (moderate); I50.42 Chronic combined systolic (congestive) and diastolic (congestive) heart failure; Z88.8 Allergy status to other drugs, medicaments and biological substances; Z79.899 Other long term (current) drug therapy; E78.2 Mixed hyperlipidemia; Z79.4 Long term (current) use of insulin
CPT/HCPCS: 49083; 87071; 87205; 89051; A4215; P9046; 96365

== ENCOUNTER → 2020-04-20 | Outpatient (CLI) | payer MEDICARE ==
[~2020-04-20] MED LIST changes: +ALBUMIN (HUMAN) 25% 100 ML IV SCH; -ALBUMIN (HUMAN) 25% 200 ML IV SCH
[2020-04-20 11:40] LABS: INR 1.06 (0.85-1.15); PARTIAL THROMBOPLASTIN TIME 34.1 SEC (26.3-35.5); PROTHROMBIN TIME 11.4 SEC (9.6-11.6)
--- NOTE | 2020-04-20 12:00 | NUR ---
US GUIDED PARACENTESIS ORDERED. ATTEMPTED. NOT DONE US OF ALL 4 QUADRANTS OF THE ABDOMEN PERFORMED BY BRIANNA MODI. DR. HELLER ATTEMPTED PROCEDURE TO THE LEFT LOWER QUADRANT NOT ENOUGH FLUID TO SAFELY PERFORM PROCEDURE. INFORMED PT OF RESULTS. PT DISCHARGED HOME VIA W/C, STABLE, AAO X 3, NO C/O PAIN.
== END | disposition home or self-care (01) ==
LOC: RAH 10:11
PROVIDERS: ATTEND Internal Medicine
DX: R18.8 Other ascites (principal); I13.0 Hypertensive heart and chronic kidney disease with heart failure and stage 1 through stage 4 chronic kidney disease, or unspecified chronic kidney disease; E11.22 Type 2 diabetes mellitus with diabetic chronic kidney disease; I50.42 Chronic combined systolic (congestive) and diastolic (congestive) heart failure; N18.3 Chronic kidney disease, stage 3 (moderate); E78.2 Mixed hyperlipidemia; E03.9 Hypothyroidism, unspecified; E11.42 Type 2 diabetes mellitus with diabetic polyneuropathy; E11.52 Type 2 diabetes mellitus with diabetic peripheral angiopathy with gangrene; Z79.4 Long term (current) use of insulin; Z87.891 Personal history of nicotine dependence; Z79.899 Other long term (current) drug therapy
CPT/HCPCS: 36415; 49083; 85610; 85730; A4215; P9046

== ENCOUNTER → 2020-05-04 | Outpatient (CLI) | payer MEDICARE ==
--- NOTE | 2020-05-04 10:30 | NUR ---
U/S GD PARACENTESIS PROCEDURE PERFORMED BY DR. HELLER. PUNCTURE SITE LEFT LOWER QUADRANT OF ABDOMEN AND PATIENT TOLERATED PROCEDURE WELL. TOTAL REMOVED 3.1LITERS OF CLOUDY YELLOW FLUID. END OF PROCEDURE AT 1100. CATHETER REMOVED AND DRESSING APPLIED. NO BLEEDING NOTED. DRESSING DRY AND INTACT. DISCHARGE INSTRUCTIONS GIVEN TO PATIENT. PATIENT VERBALIZED UNDERSTANDING. PT DISCHARGED VIA W/C, STABLE, AAO X3 WITH NO C/O PAIN @1200.
== END ==
LOC: RAH 09:52
PROVIDERS: ATTEND Internal Medicine
DX: R18.8 Other ascites (principal)
CPT/HCPCS: 49083; A4215

== ENCOUNTER → 2020-06-01 | Outpatient (CLI) | payer MEDICARE ==
[2020-06-01 11:45] LABS: INR 1.06 (0.85-1.15); PARTIAL THROMBOPLASTIN TIME 35.5 SEC (26.3-35.5); PROTHROMBIN TIME 11.4 SEC (9.6-11.6)
--- NOTE | 2020-06-01 12:00 | NUR ---
US GUIDED PARACENTESIS ORDERED. NOT DONE US OF ALL 4 QUADRANTS OF THE ABDOMEN PERFORMED BY SUNITA FLOYD _, BRIANNA. _OCTAVIA____REVIEWED THE IMAGES AND CONFIRMED, NOT ENOUGH FLUID TO SAFELY PERFORM PROCEDURE. INFORMED PT/FAMILY OF RESULTS. PT DISCHARGED HOME AMBULATORY, STABLE, AAO X 3, NO C/O PAIN.
== END | disposition home or self-care (01) ==
LOC: RAH 09:42
PROVIDERS: ATTEND Internal Medicine
DX: R18.8 Other ascites (principal)
CPT/HCPCS: 36415; 76705; 85610; 85730

== ENCOUNTER → 2020-06-29 | Outpatient (CLI) | payer MEDICARE ==
--- NOTE | 2020-06-29 10:29 | NUR ---
RE: PARACENTESIS IMAGES TAKEN AND REVIEWED BY DR Guillermo HELLER. NO FLUID SEEN AND PROCEDURE CANCELED. PATIENT DISCHARGED VIA W/C AT 1015.
== END | disposition home or self-care (01) ==
LOC: RAH 09:47
PROVIDERS: ATTEND Internal Medicine
DX: R18.8 Other ascites (principal)
CPT/HCPCS: 76705

== ENCOUNTER → 2020-07-27 | Outpatient (CLI) | payer MEDICARE ==
--- NOTE | 2020-07-27 09:25 | NUR ---
U/S GUIDED PARACENTESIS PROCEDURE PERFORMED BY DR. TORRES. PUNCTURE SITE RIGHT LOWER QUADRANT AND PATIENT TOLERATED PROCEDURE WELL. TOTAL REMOVED 11.0 LITERS OF YELLOW CLOUDY ASCITES FLUID. END OF PROCEDURE AT 1015. CATHETER REMOVED AND DRESSING APPLIED. NO BLEEDING NOTED. ALBUMIN 25% 50 GRAMS GIVEN IV PER ALBUMIN PROTOCOL. LEFT FOREARM PIV DC'D, BANDAID APPLIED, DRESSING DRY AND INTACT. DISCHARGE INSTRUCTIONS GIVEN TO PATIENT. PATIENT VERBALIZED UNDERSTANDING. PT DISCHARGED VIA W/C @ 1035. PT STABLE, AAO X 3 WITH NO C/O PAIN. Addendum: 07/27/20 at 1037 by KATHERYN MONTOYA RN RN U/S GUIDED PARACENTESIS PROCEDURE PERFORMED BY DR. TORRES. PUNCTURE SITE RIGHT LOWER QUADRANT AND PATIENT TOLERATED PROCEDURE WELL. TOTAL REMOVED 12.5 LITERS OF YELLOW CLOUDY ASCITES FLUID. END OF PROCEDURE AT 1015. CATHETER REMOVED AND DRESSING APPLIED. NO BLEEDING NOTED. ALBUMIN 25% 50 GRAMS GIVEN IV PER ALBUMIN PROTOCOL. LEFT FOREARM PIV DC'D, BANDAID APPLIED, DRESSING DRY AND INTACT. DISCHARGE INSTRUCTIONS GIVEN TO PATIENT. PATIENT VERBALIZED UNDERSTANDING. PT DISCHARGED VIA W/C @ 1035. PT STABLE, AAO X 3 WITH NO C/O PAIN. Addendum: 07/27/20 at 1542 by KATHERYN MONTOYA RN RN US GUIDED PARACENTESIS ORDERED US PERFORMED BY BRIANNA MODI. DR. TORRES REVIEWED IMAGES AND DETERMINED NOT ENOUGH FLUID TO SAFELY PERFORM PROCEDURE. INFORMED PATIENT. PT DISCHARGED HOME STABLE VIA W/C, AAO X 3 VIA W/C
[2020-07-27 11:52] LABS: INR 1.06 (0.85-1.15); PARTIAL THROMBOPLASTIN TIME 34.8 SEC (26.3-35.5); PROTHROMBIN TIME 11.4 SEC (9.6-11.6)
== END | disposition home or self-care (01) ==
LOC: RAH 10:04
PROVIDERS: ATTEND Internal Medicine
DX: R18.8 Other ascites (principal)
CPT/HCPCS: 36415; 76705; 85610; 85730

== ENCOUNTER → 2021-04-10 | Outpatient (CLI) | payer OTHER, MEDICARE ==
[~2021-04-10] MED LIST changes: -ALBUMIN (HUMAN) 25% 100 ML IV SCH; +ALBUMIN (HUMAN) 25% 200 ML IV SCH
[2021-04-10 09:29] LABS: INR 1.11 (0.85-1.15)
== END | disposition home or self-care (01) ==
LOC: RAH 12:01
PROVIDERS: ATTEND Internal Medicine
DX: R18.8 Other ascites (principal); Z79.01 Long term (current) use of anticoagulants
CPT/HCPCS: 36415; 49083; 85610; A4215; P9046

== ENCOUNTER → 2021-04-26 | Outpatient (CLI) | payer OTHER, MEDICARE ==
[2021-04-26 16:31] LABS: SPECIMENTYPE,BODY FLUID ASCITES
[2021-04-26 16:32] LABS: APPEARANCE BODY FLUID SLIGHTLY CLOUDY (CLEAR); COLOR,BODY FLUID YELLOW (LT YELLOW); TOTAL VOLUME,BODY FLUID 5000 mL
[2021-04-26 16:33] LABS: BODY FLUID RBC 157 /cu. mm.; BODY FLUID WBC 117 /cu. mm.
[2021-04-26 16:39] LABS: BF LYMPHOCYTE 87 %; BF MESOTHELIAL 2 %; BF MONOCYTE 4 %
== END | disposition home or self-care (01) ==
LOC: RAH 08:58
PROVIDERS: ATTEND Internal Medicine
DX: R18.8 Other ascites (principal)
CPT/HCPCS: 49083; 87071; 87205; 89051; A4215; P9046; 96365